=== PATIENT | male | born 1945 | race Caucasian/White ===

== ENCOUNTER 2023-10-26 11:51 | Emergency (ER) | payer MEDICARE ==
[~2023-10-26] VITALS: Ht 182.9 cm; Wt 83.9 kg
[2023-10-26 14:06] LABS: HEMATOCRIT 34.8 % (42-54); MEAN CORPUSCULAR HEMOGLOBIN 32.7 pg (27.0-33.0); MEAN CORPUSCULAR HGB CONC 34.8 g/dL (32.0-36.0); MEAN CORPUSCULAR VOLUME 94.1 fL (79-99); RED BLOOD CELL COUNT(AUTO) 3.7 MIL/uL (4.50-6.20); RED CELL DISTRIBUTION WIDTH 13.3 % (11.0-15.5); WHITE BLOOD COUNT (AUTO) 11.9 K/uL (4.8-10.8)
[2023-10-26 14:11] LABS: CREATININE 3.2 mg/dL (0.5-1.5); POTASSIUM 4.3 mmol/L (3.5-5.1)
[2023-10-26 14:17] LABS: INR 0.94 (0.85-1.15); PROTHROMBIN TIME 10.9 SEC (9.6-11.6)
[2023-10-26 14:19] LABS: PARTIAL THROMBOPLASTIN TIME 32.9 SEC (26.3-35.5)
[2023-10-26] MEDS: HYDROCODONE/ACETAMINOPHEN 5/325 MG TAB PO ONE (15:43)
[2023-10-26 16:38] VITALS: BP 117/69; PULSE 64; RESP 18; O2SAT 98
[2023-10-26] MEDS: CEPHALEXIN 250 MG CAPSULE PO SCH (18:25)
[2023-10-26] MEDS: ACETAMINOPHEN 500 MG TABLET PO ONE (18:26)
[2023-10-26 19:00] LABS: APPEARANCE,URINE TURBID (CLEAR); BILIRUBIN,URINE NEGATIVE (NEGATIVE); COLOR,URINE LIGHT-ORANGE (YELLOW); GLUCOSE, URINE (UA) NEGATIVE (NEGATIVE); KETONES,URINE NEGATIVE (NEGATIVE); LEUKOCYTE ESTERASE ,URINE 500 Leu/uL (NEGATIVE); NITRATE,URINE NEGATIVE (NEGATIVE); OCCULT BLOOD,URINE LARGE (NEGATIVE); PROTEIN,URINE 100 mg/dL (NEGATIVE); UROBILINOGEN,URINE 0.2 mg/dL (0.2-1.0)
[2023-10-26 19:05] LABS: ADD UA MICROSCOPIC YES
[2023-10-26 19:08] LABS: BACTERIA,URINE RARE /HPF (None Seen); NON-SQUAMOUS EPITHELIAL CELL 9 /HPF (0-2); RBC,URINE >100 /HPF (0-1); WBC CLUMP RARE /HPF (0-1); WBC,URINE 51-100 /HPF (0-1); YEAST,URINE BUDDING MOD /HPF (None Seen)
== END 2023-10-26 18:39 | disposition home or self-care (01) ==
LOC: EDH 11:51
DX: T85.698A Other mechanical complication of other specified internal prosthetic devices, implants and grafts, initial encounter (principal); I10 Essential (primary) hypertension; Y84.9 Medical procedure, unspecified as the cause of abnormal reaction of the patient, or of later complication, without mention of misadventure at the time of the procedure
CPT/HCPCS: 36415; 80048; 81001; 85027; 85610; 85730; 87077; 87088; 87186